=== PATIENT | male | born 1945 | race African-American/Black ===

== ENCOUNTER 2020-08-14 10:32 | Day surgery (SDC) | payer OTHER | END 2020-08-14 17:42 | disposition home or self-care (01) | LOC: AMB-ENDOS 10:32 → EDBD 13:30 → AMB-ENDOS 13:30 | PROVIDERS: ATTEND Colon & Rectal Surgery | DX: D12.2 Benign neoplasm of ascending colon (principal); K64.0 First degree hemorrhoids; Z20.822 Contact with and (suspected) exposure to COVID-19 ==